=== PATIENT | female | born 1990 | race African-American/Black ===

== ENCOUNTER 2016-10-11 17:03 | Emergency (ER) | payer OTHER ==
[2016-10-11 17:15] VITALS: TEMP 98.7; BMI 25.0
[2016-10-11 19:27] LABS: BASOPHIL 0.9 % (0-2.0); EOSINOPHIL 0.5 % (0-4.5); MCH 24.8 pg (25.7-33.7); MCHC 33.2 g/dl (32.0-36.0); MEAN CELL VOLUME 74.8 fl (80-96); MEAN PLT VOLUME 7.8 fl (7.5-11.1); NEUTROPHILS 77.4 % (42.8-82.8); PLATELET COUNT 237 K/MM3 (134-434); RDW 13.6 % (11.6-15.6); WHITE BLOOD COUNT 9.6 K/mm3 (4.0-10.0)
[2016-10-11 19:31] LABS: URINE APPEARANCE CLOUDY; URINE BILIRUBIN NEGATIVE (NEGATIVE); URINE BLOOD NEGATIVE (NEGATIVE); URINE COLOR YELLOW; URINE GLUCOSE (UA) NEGATIVE (NEGATIVE); URINE KETONE 2+ (NEGATIVE); URINE LEUK ESTERASE NEGATIVE (NEGATIVE); URINE NITRITE NEGATIVE (NEGATIVE); URINE UROBILINOGEN 2.0 E.U/dl E.U./dl (0.2-1.0)
[2016-10-11 19:34] LABS: URINE PROTEIN 1+ (NEGATIVE)
[2016-10-11 19:35] LABS: URINE MUCUS RARE; URINE RBC 2 /hpf (0-3); URINE WBC 7 /hpf (3-5)
[2016-10-11 19:51] LABS: ALBUMIN 3.4 g/dl (3.4-5.0); ANION GAP 10 (8-16); BILIRUBIN,TOTAL 0.4 mg/dL (0.2-1.0); CALCIUM 9.1 mg/dL (8.5-10.1); CO2 25 mmol/L (21-32); COCKROFT - GAULT 159.9275; CREATININE 0.6 mg/dL (0.55-1.02); GLUCOSE,RANDOM 77 mg/dL (74-106); SGOT/AST 16 U/L (15-37); SGPT/ALT 15 U/L (12-78); TOT PROT 7.1 g/dl (6.4-8.2)
[2016-10-11] MEDS ORDERED: MEPERIDINE HCL CARPU-JECT 25 MG/1 ML DISP.SYRIN IVPUSH ONE (20:04)
[2016-10-11] MEDS ORDERED: SODIUM CHLORIDE 1,000 ML IV STA (20:04)
[2016-10-11 20:06] LABS: ALK PHOS 47 U/L (45-117)
[2016-10-11] MEDS ORDERED: MEPERIDINE HCL CARPU-JECT 50 MG/1 ML DISP.SYRIN ONE (20:18)
--- NOTE | 2016-10-11 21:51 | PDOC ---
History of Present Illness - General Chief Complaint: Vaginal Bleeding Stated Complaint: 14WKS/ABD PAIN/VAGINA BLEEDING Time Seen by Provider: 10/11/16 19:18 History Source: Patient Exam Limitations: No Limitations - History of Present Illness Travel History: No Initial Comments: 10/11/16 21:45 26yo Female patient 14 weeks presents to ED c/o abdominal pain w/ vaginal bleeding that began Jacob morning. Patient reports that pain worsened with back pain. She states she had an ultrasound done in this facility and was diagnosed with fibroids. Patient denies fever, h/a, lightheadedness, CP, diff breathing or any other complaints at this time. OB Hx: 33 week- healthy child. 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 MANAGER Timing/Duration: reports: getting worse Quality: reports: severe, cramping Abdominal Pain Onset Location: reports: other (Lower abdomen) Pain Radiation: reports: back Activities at Onset: reports: no specific activity Treatment Prior to Arrive: worse with: analgesics, antacids, cold pack, heat, laxative, enema, other Aggravating Factors: worse with: None, Defecation, Eating, Emotional upset, Exertion, [place], Movement, Voiding, Change in position Alleviating Factors: worse with: None, Belching, Shallow Breathing, Defecation, Eating, Holding Breath, Passing Gas, Change in Position, Rest, Voiding, Vomiting Past History - Travel Traveled outside of the country in the last 30 days: No Close contact w/someone who was outside of country & ill: No - Past Medical History Allergies/Adverse Reactions: Allergies Allergy/AdvReac Type Severity Reaction Status Date / Time No Known Allergies Allergy Verified 10/11/16 17:15 Other medical history: NONE - Reproductive History Is Patient Now?: Yes - Psycho/Social/Smoking Cessation Hx Anxiety: No Suicidal Ideation: No Smoking History: Never smoked Hx Alcohol Use: No Drug/Substance Use Hx: No Substance Use Type: None Abd/GI Specific PMHX - Complaint Specific PMHX Colitis: No Diverticulitis: No Gall Bladder Disease: No GERD: No Hepatitis: No Irritable Bowel Synd (IBS): No Pancreatitis: No GI Ulcer Disease: No Review of Systems - Review of Systems Able to Perform ROS?: Yes Is the patient limited Indonesian proficient: No Constitutional: No: Chills, Fever Respiratory: No: Cough, Shortness of Breath, Stridor, Wheezing Cardiac (ROS): No: Chest Pain, Lightheadedness, Palpitations, Syncope, Chest Tightness ABD/GI: Yes: Abdominal cramping, Other (14 weeks ). No: Diarrhea, Nausea, Poor Appetite, Poor Fluid Intake, Rectal Bleeding, Vomiting : Yes: Other (Vaginal Bleeding). No: Burning, Dysuria, Flank Pain, Hematuria , Urgency Musculoskeletal: Yes: Back Pain. No: Neck Pain Integumentary: No: Dryness, Erythema, Rash Neurological: No: Headache, Seizure, Ataxia, Dizziness All Other Systems: Reviewed and Negative *Physical Exam - Vital Signs Last Vital Signs Temp Pulse Resp BP Pulse Ox 98.7 F 118 H 20 144/65 100 10/11/16 17:11 10/11/16 17:11 10/11/16 17:11 10/11/16 17:11 10/11/16 17:11 - Physical Exam General Appearance: Yes: Nourished, Appropriately Dressed, Apparent Distress, Moderate Distress. No: Mild Distress, Severe Distress Neck: positive: Trachea midline, Normal Thyroid, Supple. negative: Stridor, Lymphadenopathy (R), Lymphadenopathy (L) Respiratory/Chest: positive: Lungs Clear, Normal Breath Sounds. negative: Chest Tender, Respiratory Distress, Accessory Muscle Use, Labored Respiration, Rapid RR, Stridor, Wheezing Cardiovascular: positive: Regular Rhythm, Tachycardia. negative: Edema, JVD, Murmur Gastrointestinal/Abdominal: positive: Normal Bowel Sounds, Soft, Distended, Tenderness (Lower abd/pelvic region). negative: Guarding, Rebound Musculoskeletal: positive: Normal Inspection. negative: CVA Tenderness Extremity: positive: Normal Capillary Refill, Normal Inspection, Normal Range of Motion. negative: Calf Tenderness, Erythema, Inflammation Integumentary: positive: Normal Color, Dry, Warm Neurologic: positive: music adapter II-XII NML intact, Fully Oriented, Alert, Normal Mood/ Affect, Normal Response, Motor Strength 11/06 ED Treatment Course - LABORATORY CBC & Chemistry Diagram: 10/11/16 19:15 10/11/16 19:15 - ADDITIONAL ORDERS Additional order review: Laboratory Results 10/11/16 10/11/16 10/11/16 19:15 19:15 19:15 Sodium 140 Potassium 3.4 L Chloride 105 Carbon Dioxide 25 Anion Gap 10 BUN 3 L Creatinine 0.6 Creat Clearance w eGFR > 60 Random Glucose 77 Calcium 9.1 Total Bilirubin 0.4 AST 16 ALT 15 Alkaline Phosphatase 47 Total Protein 7.1 Albumin 3.4 Beta HCG, Quant 26530.5 Urine Color Yellow Urine Appearance Cloudy Urine pH 5.0 Ur Specific [place] 1.017 Urine Protein 1+ H Urine Glucose (UA) Negative Urine Ketones 2+ H Urine Blood Negative Urine Nitrite Negative Urine Bilirubin Negative Urine Urobilinogen 2.0 e.u/dl H Ur Leukocyte Esterase Negative Urine RBC 2 Urine WBC 7 Ur Epithelial Cells Moderate Urine Mucus Rare Blood Type AB POSITIVE Antibody Screen Negative 10/11/16 19:15 RBC 4.49 MCV 74.8 L MCHC 33.2 RDW 13.6 MPV 7.8 Neutrophils % 77.4 Lymphocytes % 16.1 Monocytes % 5.1 Eosinophils % 0.5 Basophils % 0.9 - RADIOLOGY Radiology Studies Ordered: Category Date Time Status TRANSVAGINAL US PREG [US] Stat Ultrasound 10/11/16 20:04 Ordered - Medications Given in the ED: ED Medications Discontinued Medications Generic Name Dose Route Start Last Admin Trade Name Freq PRN Reason Stop Dose Admin Sodium Chloride 1,000 mls @ 1,000 mls/hr 10/11/16 20:04 10/11/16 20:17 Normal Saline - IV 10/11/16 21:03 1,000 mls/hr ASDIR STA Administration Meperidine HCl 25 mg 10/11/16 20:04 10/11/16 20:23 Demerol Injection - IVPUSH 10/11/16 20:05 25 mg ONCE ONE Administration *DC/Admit/Observation/Transfer Diagnosis at time of Disposition: Leiomyoma of uterus during - Discharge Dispostion Disposition: HOME Condition at time of disposition: Stable Admit: No - Patient Instructions Printed Discharge Instructions: DI for Uterine Fibroids Additional Instructions: FOLLOW UP WITH YOUR BARN AND PROPERTY MANAGER THIS WEEK FOR FURTHER EVALUATION. TYLENOL FOR PAIN NEEDED. GET PLENTY REST. RETURN IF SYMPTOMS WORSEN OR ANY CONCERNS FOR FURTHER EVALUATION. Print Language: PORTUGUESE
[2016-10-11 23:36] VITALS: BP 145/61; PULSE 89
== END 2016-10-11 23:36 | disposition home or self-care (01) ==
LOC: JER 17:03
PROC: 3E033NZ Introduction of Analgesics, Hypnotics, Sedatives into Peripheral Vein, Percutaneous Approach (ICD-10-PCS; principal; 2016-10-11)
DX: O26.892 Other specified pregnancy related conditions, second trimester (principal); O34.12 Maternal care for benign tumor of corpus uteri, second trimester; D25.9 Leiomyoma of uterus, unspecified; Z3A.14 14 weeks gestation of pregnancy
CPT/HCPCS: 36415; 76801-TC; 80053; 81003; 81015; 84702; 85025; 86850; 86900; 86901; 87077; 87086; 96374; 99282-25

== ENCOUNTER 2017-03-31 06:20 | Inpatient (IN) | payer OTHER ==
[2017-03-31] MEDS ORDERED: ELECTROLYTE-148 SOLN 500 ML IV ONE (06:34)
[2017-03-31] MEDS ORDERED: CITRIC ACID/SODIUM CITRATE 30 ML UNIT-DOSE CUP PO ONE (06:34)
[2017-03-31] MEDS ORDERED: ELECTROLYTE-148 SOLN 1,000 ML IV SCH (06:45)
--- NOTE | 2017-03-31 06:50 | HP ---
Past Medical History - Primary Care Physician PCP:: Laura Ramirez - Admission Chief Complaint: 26 yrs , 39 weeks, previous c/s, is admitted for elective c/section History of Present Illness: PNC at [address] [place] [address] work Up:08/14/16 AB pos, Rubella immune, Hbsag neg, Rpr nr, Hbsag neg, Hiv neg, h/o uc/s >100,000 ecoli , treated pap Nilm, Gc/ct neg 1 hr GTt 96 She was seen by MFM, serial growth sono were done, reviewed.. NT screen neg, Modified sequential , free beta hcg 95%tile , Border line risk of ONTD, genetic counselling offerred, pt has declined . 01/14/17 sono 28.3/7 weeks , 64%tile, NEO 11.05 , cx short 2.3 cm follow up sono 02/04 shows short cx with funnelling , pt was given steroids on 02/04/& 02/05/17 . 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 Weeks Gestation by Dates: 39.1 ...EDC by Dates: 04/05/17 ...EDC by Sono: 04/05/17 Heme/Onc: Yes: Anemia Infectious Disease: No: AIDS, HIV, STD's, Tuberculosis Psych: No: Addictions, Anxiety, Bipolar, Depression Endocrine: No: Diabetes Insipidus, Diabetes Mellitus, Hypothyroidism - Past Surgical History Past Surgical History: Yes: (04/04/2016) Hx Myomectomy: No Hx Transabdominal Cerclage: No - Smoking History Smoking history: Never smoked - Alcohol/Substance Use Hx Alcohol Use: No History of Substance Use: reports: None Home Medications - Allergies Allergies/Adverse Reactions: Allergies Allergy/AdvReac Type Severity Reaction Status Date / Time No Known Allergies Allergy Verified 03/13/17 11:22 - Home Medications Home Medications: Ambulatory Orders Vits #93/Iron Fum/FA [ Formula Tablet] 1 tab PO DAILY 01/31/17 Iron 1 tab PO DAILY 02/04/17 Physical Exam - Maternity Constitutional: Yes: Well Nourished Eyes: Yes: WNL HENT: Yes: WNL, Normocephalic Neck: Yes: WNL Cardiovascular: Yes: WNL, Regular Rate and Rhythm Lungs: Clear to auscultation Breast(s): Yes: WNL - Abdominal Exam/OB Fundal Height: 40 Number of Fetuses: Single Presentation: Vertex Contractions: Yes Regularity: Irregular Intensity: Unaware Monitor Mode: External Heart Rate (range): 130-140 Heart Rate Location: [facility] Category: I Accelerations: Uniform - Vaginal Exam/OB Vaginal Bleediing: No Speculum Exam: No Dilatation (cm): close Effacement (%): unefface Amniotic Membrane Status: Intact Presentation: Vertex/Position Station: -3 - Physical Exam Musculoskeletal: Yes: WNL Extremities: No: Calf Tenderness Edema: Yes Edema: LLE: 1+, RLE: 1+ Integumentary: Yes: Incision (old pfannensteil scar) Deep Tendon Reflex Grade: Normal +2 ...Motor Strength: WNL Psychiatric: Yes: WNL, Alert, Oriented - Labs Lab Results: Laboratory Tests 03/29/17 03/29/17 03/29/17 11:30 11:30 11:30 WBC 7.8 RBC 4.68 Hgb 11.6 Hct 35.0 MCV 74.9 L Plt Count 208 Neutrophils % 72.9 PT with INR 11.00 INR 1.00 Sodium Potassium Chloride Carbon Dioxide BUN Creatinine Random Glucose Calcium AST ALT Urine Protein Negative Urine RBC 1 Urine WBC 3 RPR Titer 03/29/17 03/29/17 11:30 11:30 WBC RBC Hgb Hct MCV Plt Count Neutrophils % PT with INR INR Sodium 139 Potassium 3.7 Chloride 107 Carbon Dioxide 22 BUN 6 L D Creatinine 0.6 Random Glucose 139 H D Calcium 9.4 AST 15 ALT 16 Urine Protein Urine RBC Urine WBC RPR Titer Nonreactive Hemorrhage Risk Assessment - Risk Factors Medium Risk Factors: Yes: Prior , uterine surgery,or multiple laparotomies Risk Score: 1 Risk Level: Medium Risk Problem List - Problems (1) with 39 completed weeks gestation Code(s): Z3A.39 - 39 WEEKS GESTATION OF (2) Previous section Code(s): Z98.891 - HISTORY OF UTERINE SCAR FROM PREVIOUS SURGERY (3) Anemia Code(s): D64.9 - ANEMIA, UNSPECIFIED Qualifiers: Anemia type: iron deficiency Iron deficiency anemia type: inadequate dietary iron intake Qualified Code(s): D50.8 - Other iron deficiency anemias Assessment/Plan 26 yrs , previous c/section, , 39 weeks iup , for repeat c/s
[2017-03-31 07:07] VITALS: BMI 29.7
[2017-03-31] MEDS ORDERED: ONDANSETRON 4 MG/2 ML VIAL IVPUSH PRN (10:44)
[2017-03-31] MEDS ORDERED: IBUPROFEN 800 MG/8 ML IJ IVPB PRN (10:44)
[2017-03-31] MEDS ORDERED: SENNOSIDES/DOCUSATE COMBO (SENNA PLUS) TABLET (UD) PO PRN (10:50)
[2017-03-31] MEDS ORDERED: METHYLERGONOVINE MALEATE 0.2 MG/1 ML AMP IM PRN (10:50)
[2017-03-31] MEDS ORDERED: ACETAMINOPHEN 1000 MG/100 ML VIAL (NON FORMULARY) IVPB ONE (12:00)
--- NOTE | 2017-03-31 12:22 | PN ---
Delivery - Delivery Section: Repeat, Low Flap Transverse (39 weeks , previous c/section, requests repeat c/s. Intraop 6cm Rt side fibroid , intramural iln lower part of body of uterus , lateral to incision) Type of Anesthesia: Spinal Episiotomy/Laceration: None EBL (cc): 600 (ball output 300 ml faustino color ) Delivery, Single - Stages of Labor Date of Delivery: 03/31/17 Time of Delivery: 09:51 Time Placenta Delivered: 09:53 Placenta: Yes: Manual Removal, Uterine Exploration - Condition of Sales Project Administrator/Gas Station Supervisor Present: Yes Name: Lynn Shen Infant Gender: Male Weight: 8 lb Position: Left, OT Total Hours ROM (Hrs/Mins): 1min. - 1 Minute Total Score: 8 5 Minutes Total Score: 9 - [place] Feeding Plan Initial Plan: Elected not to breastfeed exclusively throughout hospitalization Remarks - Remarks Remarks: 26 yrs , previous c/section type unknown in [place], gbs neg pnc at , [facility] Intraop course uneventful
--- NOTE | 2017-03-31 12:28 | OP ---
Operative Note - Note: Operative Date: 03/31/17 Pre-Operative Diagnosis: 39, weeks, previous c/s,type unknown fibroid uterus , requests for repeat c/s Operation: Repeat LFTC/section Findings: 9.51AM, Baby Boy, Vx LOT , 9/9, wt 8lbs, cord around neck x1 Both tubes & ovaries normal 6cm round, intramural fibroid lateral to c/s incision noted Dr Ivy Jara Seed Expert present in OR Surgeon: Laura Ramirez Account Director: Soham Frost Anesthesiologist/MEDICAL SUPPORT ASSISTANT: Elian Johnson Anesthesia: Spinal Specimens Removed: placenta. cord blood Estimated Blood Loss (mls): 600 Drains, Volume Out (mls): 300 (ball out put faustino color ) Fluid Volume Replaced (mls): 1,000 (iv ancef intraop given ) Operative Report Dictated: Yes
--- NOTE | 2017-03-31 13:16 | OP ---
DATE OF OPERATION: 03/31/2017 PREOPERATIVE DIAGNOSIS: At 39 weeks, previous section type unknown, fibroid uterus, request for repeat section. OPERATION: Repeat low transverse section. SURGEON: Donna Ramirez MD ANESTHESIOLOGIST: Elian Johnson MD ATTRACTION ATTENDANT: MADHAV Segura FINDINGS: This is a 26-year-old 2, para 1-0-0-1 at 39 weeks' who had a section done in [place] and could not get the operative report. The patient also knows she has a fibroid uterus. Requested for repeat section. GBS was negative. DESCRIPTION OF PROCEDURE: The abdomen was shaved. Garland catheter was placed. She was taken to the operating room table. Spinal anesthesia was given. She was placed in supine position. Pfannenstiel incision was made through a previous scar in skin and subcutaneous tissue. Anterior rectus sheath was incised transversely. Bleeding points were clamped and cauterized. Rectus muscle was . Rectus sheath was incised transversely. Amniotic fluid was clear. Baby boy was delivered from LOT position at 9:51 a.m. Baby's Apgars were 8/9. Cord around the neck x1 was noted. Baby's weight was 8 pounds. The cord was clamped and cut. Cord blood was collected. Placenta was removed completely with the membranes. Uterus was brought out of the incision and then the large 6-cm fibroid was noted lateral to the incision made on the uterus in the lower part of the uterus. It was intramural. Then the uterine cavity was cleaned and the uterine incision was closed with 2 layers. First layer was a continuous locking with a Biosyn 0 suture. Second layer was closed with a Biosyn 0 suture locking. Vertical mattress sutures were taken. Small hematoma in the left angle of the incision was noted, and it was taken care of by taking a [id number] suture there. Then bladder peritoneum was closed also with a Biosyn single suture. Hemostasis was verified. Both tubes and ovaries were normal. Irrigation was done. Uterus was placed back into the peritoneal cavity. Sponge, instrument, and needle count was correct. The closure of the abdomen was done. Peritoneum was closed with a Vicryl 0 suture. Muscles were approximated together with a Biosyn 0 suture. Interrupted sutures were taken. Hemostasis was checked below the anterior rectus sheath. It was verified. Then the anterior rectus sheath was closed with a Vicryl 0 suture. Subcutaneous tissue was freed from the skin then subcutaneous tissue was approximated with Biosyn interrupted sutures. Skin was approximated with 4-0 Biosyn on a V-Lock. Steri-Strips were applied. A pressure dressing was given. Blood clots were removed from the vagina. The patient tolerated the procedure well, and she was transferred to the recovery room in stable condition. She received 1 g of IV Ancef prior to the incision. She had estimated blood loss of 600 mL. Urine output was 300 mL intraoperatively. Garland output was faustino colored. DONNA RAMIREZ M.D. [id number] MTDD
[2017-03-31] MEDS: D5W-LR W/ 20 UNITS OXYTOCIN 1,000 ML IV SCH (14:24)
[2017-03-31] MEDS: CEFAZOLIN 1 GM in DEXTROSE 5%-WATER - 50 ML IVPB SCH (18:07)
[2017-03-31] MEDS: SIMETHICONE 80 MG TAB.CHEW (FP) PO PRN (21:01)
[2017-03-31] MEDS: ACETAMINOPHEN 325 MG TABLET (FP) PO PRN (21:01)
[2017-04-01] MEDS ORDERED: DEXTROSE 5%-WATER - 50 ML IVPB ONE ×3 (00:03→08:17)
[2017-04-01] MEDS: CEFAZOLIN 1 GM in DEXTROSE 5%-WATER - 50 ML IVPB SCH ×2 (01:15→09:35)
[2017-04-01 06:58] LABS: MCH 24.7 pg (25.7-33.7); MCHC 32.9 g/dl (32.0-36.0); MEAN CELL VOLUME 75.3 fl (80-96); MEAN PLT VOLUME 7.8 fl (7.5-11.1); PLATELET COUNT 182 K/MM3 (134-434); RDW 15.1 % (11.6-15.6); WHITE BLOOD COUNT 12.3 K/mm3 (4.0-10.0)
[2017-04-01] MEDS ORDERED: ceFAZolin SODIUM 1 GM VIAL ONE ×2 (08:17)
--- NOTE | 2017-04-01 09:00 | PN ---
Progress Note, Physician Chief Complaint: Pt. ambulating and voiding, pain controlled, no anesthesia complications. - Current Medication List Current Medications: Active Medications Acetaminophen (Tylenol -) 650 mg PO Q4H PRN PRN Reason: FEVER OR PAIN Last Admin: 03/31/17 21:01 Dose: 650 mg Bisacodyl (Dulcolax Suppository -) 10 mg RC PRN PRN PRN Reason: CONSTIPATION Diphenhydramine HCl (Benadryl Injection -) 25 mg IVPUSH Q4H PRN PRN Reason: itching Last Admin: 03/31/17 12:00 Dose: 25 mg Enoxaparin Sodium (Lovenox -) 40 mg SQ DAILY [facility] Ferrous Sulfate (Feosol -) 325 mg PO BID [facility] Cefazolin Sodium 1 gm/ (Dextrose) 50 mls @ 100 mls/hr IVPB Q8H-IV FRANKLIN Stop: 04/01/17 17:59 Last Admin: 04/01/17 01:15 Dose: 100 mls/hr Dextrose/Lactated Ringer's (Pitocin 20 Units In D5-Lr -) 1,000 mls @ 125 mls/ hr IV ASDIR FRANKLIN Last Admin: 03/31/17 14:24 Dose: 125 mls/hr Ibuprofen (Caldolor Injection -) 800 mg IVPB Q6H PRN PRN Reason: PAIN Stop: 04/01/17 09:30 Last Admin: 04/01/17 04:53 Dose: 800 mg Ibuprofen (Motrin -) 600 mg PO Q4H PRN PRN Reason: PAIN Methylergonovine Maleate (Methergine Injection -) 0.2 mg IM Q4H PRN PRN Reason: Excessive Bleeding (L&D) Oxycodone HCl (Roxicodone -) 10 mg PO Q4H PRN PRN Reason: PAIN LEVEL 6-10 Oxycodone HCl (Roxicodone -) 5 mg PO Q4H PRN PRN Reason: PAIN LEVEL 1-5 Multivit/Folic Acid/Iron ( Vitamins (Sjr) -) 1 tab PO DAILY [facility] Senna/Docusate Sodium (Pericolace -) 2 tablet PO HS PRN PRN Reason: CONSTIPATION Simethicone (Mylicon -) 80 mg PO Q4H PRN PRN Reason: GAS Last Admin: 03/31/17 21:01 Dose: 80 mg - Objective Vital Signs: Vital Signs Temperature 99.9 F H 04/01/17 05:24 Pulse Rate 107 H 04/01/17 05:24 Respiratory Rate 18 04/01/17 08:00 Blood Pressure 127/78 04/01/17 05:24 O2 Sat by Pulse Oximetry (%) Constitutional: Yes: Well Nourished, No Distress, Calm Musculoskeletal: Yes: WNL Neurological: Yes: WNL, Alert, Oriented ...Motor Strength: WNL Labs: CBC, BMP 04/01/17 06:35 Assessment/Plan POD#1 s/p Repeat under spinal with duramorph. Doing well. D/C from anesthesia care.
[2017-04-01] MEDS: ENOXAPARIN NA (PORCINE) 40 MG/0.4 ML DISP.SYRIN SQ SCH (09:33)
[2017-04-01] MEDS: PRENATAL VITAMINS W/ FOLIC ACID TABLET (FP) PO SCH (09:33)
--- NOTE | 2017-04-01 10:14 | PN ---
Post Progress Note - Subjective Subjective: Patient seen and evaluated. Doing well, no complaints Post Day: 1 Type of Delivery: Repeat C/S Vital Signs: Vital Signs Temperature 99.4 F 04/01/17 10:00 Pulse Rate 97 H 04/01/17 10:00 Respiratory Rate 18 04/01/17 10:00 Blood Pressure 124/79 04/01/17 10:00 O2 Sat by Pulse Oximetry (%) 100 04/01/17 09:00 Breast Exam: Yes: Soft Uterus: Yes: Fundus Firm Incision: Yes: Dressing dry and intact Abdomen/GI: Yes: Abdomen soft, Tolerating PO Lochia: Yes: Rubra Lochia, amount: Small Extremities: Yes: Calves non-tender Perineum: Yes: Intact Activity: Ambulating - Labs Labs: CBC WBC 12.3 K/mm3 (4.0-10.0) H D 04/01/17 06:35 RBC 4.24 M/mm3 (3.60-5.2) 04/01/17 06:35 Hgb 10.5 GM/dL (10.7-15.3) L 04/01/17 06:35 Hct 31.9 % (32.4-45.2) L 04/01/17 06:35 MCV 75.3 fl (80-96) L 04/01/17 06:35 MCH 24.7 pg (25.7-33.7) L 04/01/17 06:35 MCHC 32.9 g/dl (32.0-36.0) 04/01/17 06:35 RDW 15.1 % (11.6-15.6) 04/01/17 06:35 Plt Count 182 K/MM3 (134-434) 04/01/17 06:35 MPV 7.8 fl (7.5-11.1) D 04/01/17 06:35 Neutrophils % No Result Required. 04/01/17 06:35 Lymphocytes % No Result Required. 04/01/17 06:35 Problem List - Problems (1) Status post repeat low transverse section Code(s): Z98.891 - HISTORY OF UTERINE SCAR FROM PREVIOUS SURGERY Assessment/Plan Status post repeat Ambulation Analgesia as needed Continue routine Post op care
[2017-04-01] MEDS: oxyCODONE HCL 5 MG TABLET PO PRN ×2 (10:37→18:15)
[2017-04-01] MEDS: IBUPROFEN 600 MG TABLET (FP) PO PRN ×2 (10:38→18:16)
[2017-04-01] MEDS: D5W-LR W/ 20 UNITS OXYTOCIN 1,000 ML IV SCH (11:13)
[2017-04-01] MEDS: BISACODYL 10 MG SUPP.RECT RC PRN (11:57)
[2017-04-01 12:10] LABS: BASOPHIL (MANUAL) 1 % (0-2.0); PLATELET ESTIMATE ADEQUATE (NORMAL); TOTAL CELLS COUNTED 100
[2017-04-01] MEDS: SIMETHICONE 80 MG TAB.CHEW (FP) PO PRN (18:15)
[2017-04-01] MEDS: FERROUS SO4 325 MG TABLET (FP) PO SCH (22:11)
[2017-04-02] MEDS: oxyCODONE HCL 5 MG TABLET PO PRN ×3 (04:09→17:31)
[2017-04-02] MEDS: SIMETHICONE 80 MG TAB.CHEW (FP) PO PRN ×3 (04:09→17:30)
[2017-04-02] MEDS: IBUPROFEN 600 MG TABLET (FP) PO PRN ×3 (04:09→17:31)
[2017-04-02] MEDS ORDERED: oxyCODONE HCL 5 MG TABLET PO PRN (08:00)
[2017-04-02] MEDS: PRENATAL VITAMINS W/ FOLIC ACID TABLET (FP) PO SCH (09:38)
[2017-04-02] MEDS: ENOXAPARIN NA (PORCINE) 40 MG/0.4 ML DISP.SYRIN SQ SCH (09:38)
[2017-04-02] MEDS: FERROUS SO4 325 MG TABLET (FP) PO SCH ×2 (09:38→22:04)
--- NOTE | 2017-04-02 13:28 | PATH ---
Surgical Pathology Report Patient Name: DIVINA GTZ [facility]. Rec. #: [id number] /Age/Gender: 1990 (Age: 26) / F Account: [id number] Location: [address] [place] [address] OBG/AREA ATTENDANT Taken: 03/31/2017 Received: 04/01/2017 Reported: 04/02/2017 Physicians: Laura Ramirez M.D. Specimen(s) Received PLACENTA Clinical History , uterine fibroid lower segment (right), anemia, c/section 2010 at 33 weeks PROM and failure to progress Repeat C/section Final Diagnosis PLACENTA, DELIVERY: FOCALLY DISRUPTED THIRD TRIMESTER PLACENTA WITH MILD PREVILLOUS, PERIVILLOUS, AND PRECHORIONIC FIBRIN DEPOSITION, THREE VESSEL UMBILICAL CORD, AND UNREMARKABLE PLACENTAL MEMBRANES. Electronically Signed Renzo Merrill M.D. Gross Description The specimen is received fresh, labeled "placenta" and is a 435 gram, 16 x 16 x 2.5 cm placenta with attached membranes and umbilical cord. The attached membranes are glistening and translucent and insert marginally. The umbilical cord measures 45 cm in length and averages 1.5 cm in diameter. The cord inserts eccentrically, 6.5 cm to the nearest margin. No true knots or strictures are identified. Cut surface of the umbilical cord reveals 3 vessels. The surface is marin-blue with minimal fibrin deposition and appropriate caliber vessels. The maternal surface is red-brown with focal defects. Sectioning reveals red-brown, spongy parenchyma. No focal lesions are identified. Plastic Cutter sections are submitted in three cassettes as follows: 1- membrane rolls and umbilical cord; 2-3- full thickness sections of placenta. [facility]/04/01/2017 [facility]/04/01/2017
--- NOTE | 2017-04-02 16:31 | PN ---
Progress Note (short form) - Note Progress Note: s/p repeat c/s doing well CBC, BMP 04/01/17 06:35 Last Vital Signs Temp Pulse Resp BP Pulse Ox 98.3 F 72 20 114/73 100 04/02/17 09:47 04/02/17 09:47 04/02/17 09:47 04/02/17 09:47 04/01/17 09:00 abdomen soft, incision dry, no calf tenderness no excess vaginal bleeding plan ambulate, pain management
[2017-04-02] MEDS: D5W-LR W/ 20 UNITS OXYTOCIN 1,000 ML IV SCH (17:23)
[2017-04-02] MEDS: BISACODYL 10 MG SUPP.RECT RC PRN (20:12)
[2017-04-03] MEDS: SIMETHICONE 80 MG TAB.CHEW (FP) PO PRN ×2 (01:01→08:01)
[2017-04-03] MEDS: oxyCODONE HCL 5 MG TABLET PO PRN (01:01)
[2017-04-03] MEDS: ACETAMINOPHEN 325 MG TABLET (FP) PO PRN ×2 (01:02→08:00)
[2017-04-03 07:55] LABS: BASOPHIL 0.4 % (0-2.0); EOSINOPHIL 4.3 % (0-4.5); MCH 24.7 pg (25.7-33.7); MCHC 32.8 g/dl (32.0-36.0); MEAN CELL VOLUME 75.3 fl (80-96); MEAN PLT VOLUME 7.6 fl (7.5-11.1); NEUTROPHILS 65.4 % (42.8-82.8); PLATELET COUNT 213 K/MM3 (134-434); RDW 15.5 % (11.6-15.6); WHITE BLOOD COUNT 8.6 K/mm3 (4.0-10.0)
[2017-04-03] MEDS: FERROUS SO4 325 MG TABLET (FP) PO SCH (09:38)
[2017-04-03] MEDS: ENOXAPARIN NA (PORCINE) 40 MG/0.4 ML DISP.SYRIN SQ SCH (09:39)
[2017-04-03] MEDS: PRENATAL VITAMINS W/ FOLIC ACID TABLET (FP) PO SCH (09:48)
[2017-04-03 10:03] VITALS: BP 128/71; PULSE 87; TEMP 98.2
--- NOTE | 2017-04-03 23:18 | DS ---
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 No: Distention ....Post : Yes: Uterus firm, Moderate lochia rubra Breast(s): Yes: WNL Musculoskeletal: Yes: WNL Extremities: Yes: WNL. No: Calf Tenderness Edema: Yes Integumentary: Yes: WNL Wound/Incision: Yes: Clean/Dry, Well Approximated Neurological: Yes: WNL, Alert, Oriented ...Motor Strength: WNL Psychiatric: Yes: WNL, Alert, Oriented Labs: CBC, BMP 04/03/17 07:30 Delivery - Delivery Section: Repeat, Low Flap Transverse (39 weeks , previous c/section, requests repeat c/s. 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 - 1 Minute Total Score: 8 5 Minutes Total Score: 9 - [place] Feeding Plan Initial Plan: Elected not to breastfeed exclusively throughout hospitalization Remarks - Remarks Remarks: 26 yrs , previous c/section type unknown in [place], gbs neg pnc at , [facility] Intraop course uneventful Post op course uneventful discharge today 04/03/17 . she will rtc 1 week for wound check. Anemia is counselled Discharge Summary Reason For Visit: REPEAT Condition: Stable - Instructions Diet, Activity, Other Instructions: Post Instructions DIET: Continue good diet high in protein, calcium, and iron rich foods. Drink at least eight (8) glasses of water daily in addition to other fluids. ___ Regular diet MEDICATIONS: Continue vitamins and iron as previously directed. Motrin and Tylenol may be taken for minor discomfort. ACTIVITY: Mild to moderate exercise may be started in two (2) weeks. Take frequent rest periods. Resume normal activity after six (6) week check up. WOUND CARE OF OPERATIVE SITE: Continue use of perineal bottle until vaginal discharge stops. Keep area clean. Shower daily. Keep abdominal wound dry. Report any drainage or redness to physician. Tub baths, tampons and douches are not permitted for [address] Breast feeding & or Bottle feeding BREAST CARE: (For those that are not breast feeding): If engorgement occurs: Wear tight fitting bra. Take Tylenol or Motrin for pain. Apply cold packs (ice in bags to each breast ) FAMILY PLANNING: There are many control alternatives to pursue and they should be discussed at your first office visit. You may resume sexual activity after your six (6) week check up. (Remember, breast feeding is not a contraceptive) NEXT PHYSICIAN APPOINTMENT: Be certain to call for a one (1) week appointment, unless otherwise directed. rtc for Wound check Call Clinic or got to Emergency Dept if you have any of the following: Heavy vaginal bleeding Painful urination Leg pain Unusual odor noted to vaginal bleeding High fever Red streaking noted on breast Referrals: Laura Ramirez MD [Staff Physician] - Disposition: HOME - Home Medications Comprehensive Discharge Medication List: Ambulatory Orders Vits #93/Iron Fum/FA [ Formula Tablet] 1 tab PO DAILY 01/31/17 Iron 1 tab PO DAILY 02/04/17 Acetaminophen [Tylenol .Regular Strength -] 500 mg PO Q4H PRN #30 tablet Ferrous Sulfate [Feosol] 325 mg PO BID tab 04/01/17 Ibuprofen [Motrin -] 600 mg PO Q4H PRN #30 tablet 04/01/17 Vitamins (Sj[facility]) - 1 tab PO DAILY tablet 04/01/17
== END 2017-04-03 13:05 | disposition home or self-care (01) | DRG 540 ==
LOC: JLDR 06:20 → J3N 19:45
PROVIDERS: ADMIT Obstetrics & Gynecology; ATTEND Obstetrics & Gynecology
PROC: 10D00Z1 Extraction of Products of Conception, Low, Open Approach (ICD-10-PCS; principal; 2017-03-31)
DX: O34.211 Maternal care for low transverse scar from previous cesarean delivery (principal); O69.81X0 Labor and delivery complicated by cord around neck, without compression, not applicable or unspecified; O34.13 Maternal care for benign tumor of corpus uteri, third trimester; D25.1 Intramural leiomyoma of uterus; Z3A.39 39 weeks gestation of pregnancy; Z37.0 Single live birth
CPT/HCPCS: 36415; 85025; 88307-TC